=== PATIENT | male | born 1985 | race Caucasian/White ===

== ENCOUNTER 2017-02-22 14:00 | Emergency (ER) | payer BC ==
[~2017-02-22] VITALS: Ht 165.1 cm; Wt 91.9 kg
[2017-02-22 14:02] VITALS: TEMP 36.8; Ht 165.1 cm; Wt 91.9 kg
[2017-02-22] MEDS ORDERED: DIAZEPAM 5MG TAB PO STA (14:16)
[2017-02-22] MEDS ORDERED: KETOROLAC TROMETHAMINE 60 MG/2 ML VIAL IM STA (14:16)
[2017-02-22] MEDS ORDERED: AMPH10TA2 PO (14:25)
[2017-02-22] MEDS ORDERED: IBUP-103 PO (14:25)
[2017-02-22] MEDS ORDERED: LIDOCAINE/EPINEPHRINE 1% 20 ML VIAL INFIL ONE (14:30)
[2017-02-22] MEDS ORDERED: DIAZ10TA3 PO (15:42)
--- NOTE | 2017-02-22 15:51 | EMERGENCY ROOM VISIT NOTE ---
ED Visit Note First contact with patient: 14:05 CHIEF COMPLAINT: Neck pain HISTORY OF PRESENT ILLNESS: This 31-year-old male patient presents to the emergency department by private vehicle with his complaining of pain in the neck that started this morning. The patient states that he woke up with severe pain in the right side of the neck, and has been unable to turn his neck to the right because of this pain. The patient rates the pain as sharp severe, 8/10. The patient has taken Advil at 12 PM today for the pain, and also tried heat, with no improvement. The patient does not have a history of previous neck problems. The patient does not have pain of the arms and shoulders. The patient denies numbness and tingling. The patient denies chest pain or shortness of breath. There was no injury to the neck, no head injury and no loss of consciousness. The patient denies headache, blurred vision, abdominal pain, nausea, or vomiting. The patient denies change in personality. REVIEW OF SYSTEMS: A 10 system review of systems was completed with positives and pertinent negatives listed in the HPI. ALLERGIES: Reviewed in chart MEDICATIONS: Reviewed in chart PMH: ADHD SOCIAL HISTORY: Lives at home. Denies tobacco, alcohol, recreational drugs. PHYSICAL EXAM: VITALS: Vitals are noted on the nurse's note and reviewed by myself. Vital signs stable. GENERAL: Pleasant and cooperative, in no acute distress but in obvious discomfort, non-diaphoretic, well-developed well-nourished. SKIN: Capillary reflex less than 2 seconds. HEENT: Normocephalic. Atraumatic. PERRLA. EOMI. Nares patent. Mucous membranes moist. Cervical spine is not tender to palpation. The patient has tenderness of the paraspinal muscles on the right with notable spasm. The patient is able to turn his head to the left not to the right, he is able to flex and extend the neck minimally due to pain. There is no lymphadenopathy. MUSCULOSKELETAL: The patient has full range of motion of the bilateral arms. Strength 5/5 of the bilateral upper extremities. The patient has tenderness with any movement of the neck. NEURO: Patient was alert and oriented to person place and time. Normal sensation to light and sharp touch. No focal neurologic deficits. PROCEDURE: Trigger point injection, right neck Indication: Acute torticollis Verbal consent was obtained after the risks and benefits were explained, including but not limited to bleeding/bruising, scarring, infection, pain, among others. At this time, the risks of the procedure are less than the benefits of performing the procedure. A time out was taken and the correct patient and site identified. The patient was placed in an upright seated position in the stretcher. The right side of the neck was palpated until the most tender point was located at the base of the neck. This area of the neck cleansed with chlorhexidine scrub. Using a 5/8 inch 25 G needle, approximately 6 mL total (1.5 mL each) of 1% buffered lidocaine with epinephrine was injected in a circular motion around the trigger point. The area was then massaged, again cleansed with chlorhexidine scrub, and is sterile bandage was placed over the injection sites. The patient reported significant improvement in pain shortly after the injections, and was able to turn his neck approximately 90 to the right, which he was previously unable to do. The patient tolerated the procedure well and there were no complications. EMERGENCY DEPARTMENT COURSE: I examined the patient. There has been no trauma to the neck, and there is no midline tenderness, neurologic exam is completely normal. Exam findings consistent with acute torticollis/muscle spasm of the neck. Patient was treated with IM Toradol, PO Valium, with some improvement. I did offer a trigger point injection to the patient, explaining risks and benefits, he verbalized understanding and requested that I from this procedure. The patient had significant improvement after trigger point injection, was able to move his neck with almost full range of motion now. The patient was educated on continued stretches and range of motion exercises for his neck, and encouraged to follow up with his PCP for possible physical therapy if he has not continued to improve. He was also given strict return precautions should his symptoms worsen in any way, he verbalized understanding. Rx for Valium sent to pharmacy. Patient was discharged home in stable condition at [facility]. Problem List Surgical Problems: (1) No significant past surgical history Status: Chronic Current/Historical Medications Scheduled Amphetamine-Dextroamphetamine 10MG (Adderall 10MG), 10 MG PO UD Diazepam (Valium), 10 MG PO Q8H Scheduled PRN Ibuprofen Tab (Advil), 400 MG PO Q6H PRN for Pain Allergies Coded Allergies: Penicillins (Unverified Allergy, Unknown, HIVES, 02/22/17) Vital Signs Date Time Temp Pulse Resp B/P (MAP) Pulse Ox O2 Delivery O2 Flow Rate FiO2 02/22/17 15:56 84 16 138/94 94 Room Air 02/22/17 14:02 36.8 83 18 146/96 96 Room Air Medications Administered Medications (Trade) Dose Ordered Sig/Bettina Route Start Time Stop Time Status Last Admin Dose Admin Ketorolac Tromethamine (Toradol Inj) 60 mg NOW STAT IM 02/22/17 14:16 02/22/17 14:18 DC 02/22/17 14:28 60 MG Diazepam (Valium Tab) 10 mg NOW STAT PO 02/22/17 14:16 02/22/17 14:18 DC 02/22/17 14:28 10 MG Departure Information Impression Primary Impression: Torticollis, acute Dispostion Home / Self-Care Condition GOOD Prescriptions Diazepam (VALIUM) 10 Mg Tab 10 MG PO Q8H, #[address] WITH MEDICATION Prov: Elizabeth Hudson CRNP 02/22/17 Referrals Juan David Fitzgerald M.D. (PCP) Patient Instructions ED Spasm Neck No Injury, My [facility] Additional Instructions You've been seen and treated in the emergency department today for your torticollis (muscle spasm of the neck). Apply heat to your neck for 20-30 minutes at a time throughout the day for comfort. After heat, do gentle stretches and massage of your neck. You have been prescribed Valium (muscle relaxer) to be taken as needed for spasm and pain. Do not drive, operate machinery, or drink alcohol while you're taking this medication, as it may make you drowsy. You may take ibuprofen 600 mg every 6-8 hours as needed for pain. Follow up with your primary care provider as needed or sooner for worsening symptoms. Please return to the emergency department for any worsening symptoms, numbness or weakness in your arms, severe headaches, vomiting, fevers >101.5, or any other concerns. Work Instructions Return To Work: 2 days
[2017-02-22 15:56] VITALS: BP 138/94; PULSE 84; O2SAT 94
== END 2017-02-22 15:57 | disposition home or self-care (01) ==
LOC: C.EDB 14:01 → C.EDD 15:57
DX: M43.6 Torticollis (principal); F90.9 Attention-deficit hyperactivity disorder, unspecified type